=== PATIENT | male | born 1970 | race Caucasian/White ===

== ENCOUNTER → 2022-10-15 | Outpatient (CLI) | payer BC ==
[~2022-10-15] MED LIST: IOHEXOL 350 MG/ML 100ML INFUS..BTL IV ONE
== END | disposition home or self-care (01) ==
LOC: RAH 10:58 → EDSEX 11:00
PROVIDERS: ATTEND Internal Medicine Cardiovascular Disease
DX: I25.119 Atherosclerotic heart disease of native coronary artery with unspecified angina pectoris (principal)
CPT/HCPCS: 75574; Q9967

== ENCOUNTER → 2023-03-11 | Outpatient (CLI) | payer BC | END | disposition home or self-care (01) | LOC: RAH 13:27 | PROVIDERS: ATTEND Internal Medicine Cardiovascular Disease | DX: G44.52 New daily persistent headache (NDPH) (principal) | CPT/HCPCS: 70450 ==